=== PATIENT | male | born 1980 | race Caucasian/White ===

== ENCOUNTER 2018-08-07 17:52 | Emergency (ER) | payer SELFPAY ==
[~2018-08-07] VITALS: Ht 175.3 cm; Wt 79.4 kg
[2018-08-07 19:00] VITALS: BP 131/80
[2018-08-07] MEDS ORDERED: IBUPROFEN 400 MG TABLET. PO ONE (19:45)
[2018-08-07] MEDS ORDERED: IPRATRPIUM/ALBUTEROL 0.5/2.5MG 3 ML NEBU. NEB ONE (19:45)
[2018-08-07 20:10] LABS: INFLUENZA A PATIENT POSITIVE (NEGATIVE); INFLUENZA B PATIENT NEGATIVE (NEGATIVE)
--- NOTE | 2018-08-07 20:13 | PHYS DOC ---
Past Medical History Past Medical History: No Pertinent History (MCKAYLA FAY APRN) Past Surgical History: Appendectomy (MCKAYLA FAY APRN) Alcohol Use: Occasionally Drug Use: None (MCKAYLA FAY APRN) Adult General Chief Complaint Chief Complaint: COUGH HPI HPI Patient is a 38 year old male who presents with flulike symptoms 3 days. The patient states that he has had a mild cough with a fever, body aches and general malaise. He states that his highest fever was 103F. He has been using Tylenol and Motrin to treat his symptoms. He also has some [id number] flu relief medicine that he has been taking. He denies shortness of breath or chest pain. (MCKAYLA FAY APRN) Review of Systems Review of Systems Constitutional: See history of present illness Eyes: Denies change in visual acuity, redness, or eye pain [] HENT: Denies nasal congestion or sore throat [] Respiratory: See history of present illness Cardiovascular: No additional information not addressed in HPI [] GI: Denies abdominal pain, nausea, vomiting, bloody stools or diarrhea [] : Denies dysuria or hematuria [] Musculoskeletal: See history of present illness Integument: Denies rash or skin lesions [] Neurologic: Denies headache, focal weakness or sensory changes [] Endocrine: Denies polyuria or polydipsia [] All other systems were reviewed and found to be within normal limits, except as documented in this note. (MCKAYLA FAY APRN) Current Medications Current Medications Current Medications Medications (Trade) Dose Ordered Sig/Angella Start Time Stop Time Status Last Admin Dose Admin Albuterol/ Ipratropium (Duoneb) 3 ml 1X ONCE 08/07/18 19:45 08/07/18 19:49 DC 08/07/18 19:53 3 ML Ibuprofen (Motrin) 400 mg 1X ONCE 08/07/18 19:45 08/07/18 19:49 DC 08/07/18 19:58 400 MG (DOUGLAS NG MD) Allergies Allergies Allergies Coded Allergies Type Severity Reaction Last Updated Verified No Known Drug Allergies 08/07/18 No (DOUGLAS NG MD) Physical Exam Physical Exam Constitutional: Well developed, well nourished, no acute distress, non-toxic appearance. [] HENT: Normocephalic, atraumatic, bilateral tympanic membranes normal, oropharynx moist, no oral exudates, nose normal. [] Eyes: PERRLA, EOMI, conjunctiva normal, no discharge. [] Neck: Normal range of motion, no tenderness, supple, no stridor. [] Cardiovascular:Heart rate regular rhythm, no murmur [] Lungs & Thorax: Bilateral breath sounds clear to auscultation, cough noted [] Abdomen: Bowel sounds normal, soft, no tenderness, no masses, no pulsatile masses. [] Skin: Warm, dry, no erythema, no rash. [] Back: No tenderness, no CVA tenderness. [] Extremities: No tenderness, no cyanosis, no clubbing, ROM intact, no edema. [] Neurologic: Alert and oriented X 3, normal motor function, normal sensory function, no focal deficits noted. [] Psychologic: Affect normal, judgement normal, mood normal. [] (MCKAYLA FAY APRN) Current Patient Data Vital Signs Vital Signs Date Time Temp Pulse Resp B/P (MAP) Pulse Ox O2 Delivery O2 Flow Rate FiO2 08/07/18 19:55 96 Room Air 08/07/18 19:00 100.6 96 18 131/80 (97) 100.6 (DOUGLAS NG MD) Lab Values Laboratory Tests Test 08/07/18 19:03 Influenza Type A Antigen Positive (NEGATIVE) Influenza Type B Antigen Negative (NEGATIVE) (DOUGLAS NG MD) EKG EKG [] (MCKAYLA FAY APRN) Radiology/Procedures Radiology/Procedures [] (MCKAYLA FYA APRN) Course & Med Decision Making Course & Med Decision Making Pertinent Labs and Imaging studies reviewed. (See chart for details) []He patient is positive for type A influenza. The patient declines Tamiflu given the number of days that he is already been ill. (MCKAYLA FAY APRN) Course & Med Decision Making Staff Physician Addendum: I was working in the ER during the course of this patient's visit. I was available for consultation as needed, but I was not directly involved in the care of this patient. (DOUGLAS NG MD) Dragon Disclaimer Dragon Disclaimer This electronic medical record was generated, in whole or in part, using a voice recognition dictation system. (MCKAYLA FAY APRN) Departure Departure Impression: Primary Impression: Influenza A Disposition: 01 HOME, SELF-CARE Condition: STABLE Referrals: NO PCP (PCP) Patient Instructions: Influenza A (H1N1) Additional Instructions: Increase fluids and rest. He may take ibuprofen and Tylenol for fever. Follow- up with your primary care provider in 4 days if not improving or return to the emergency department if worsening. MCKAYLA FAY APRN Aug 07, 2018 20:13 DOUGLAS NG MD Aug 18, 2018 00:06
== END 2018-08-07 20:15 | disposition home or self-care (01) ==
LOC: ER 17:52
DX: J10.1 Influenza due to other identified influenza virus with other respiratory manifestations (principal); R50.9 Fever, unspecified; R53.81 Other malaise
CPT/HCPCS: 87804; 94640; 99283; J7620

== ENCOUNTER 2019-04-23 18:45 | Emergency (ER) | payer SELFPAY ==
[~2019-04-23] VITALS: Ht 172.7 cm; Wt 72.6 kg
[2019-04-23 19:18] VITALS: BP 151/87
[2019-04-23] MEDS ORDERED: KETOROLAC 60 MG/2 ML VIAL. IM ONE (19:30)
--- NOTE | 2019-04-23 20:09 | RAD ---
Exam: Chest one view INDICATION: Fever TECHNIQUE: Frontal view of the chest Comparisons: None FINDINGS: The cardiomediastinal silhouette and pulmonary vessels are within normal limits. The lung and pleural spaces are clear. IMPRESSION: No acute cardiopulmonary process. Electronically signed by: Nba Awad MD (04/23/2019 8:06 PM) [facility]
[2019-04-23 20:44] LABS: INFLUENZA A PATIENT NEGATIVE (NEGATIVE); INFLUENZA B PATIENT NEGATIVE (NEGATIVE)
[2019-04-23] MEDS ORDERED: BENZ100C PO (21:02)
[2019-04-23] MEDS ORDERED: ALBU2.5V8 IH (21:02)
--- NOTE | 2019-04-23 22:12 | PHYS DOC ---
Past Medical History Past Medical History: No Pertinent History Past Surgical History: Appendectomy Alcohol Use: Occasionally Drug Use: None Adult General Chief Complaint Chief Complaint: FEVER HPI HPI Patient is a 38 year old male presenting with fever subjective body aches cough occasional mucus is sick with similar symptoms he says he wasn't he is worried about the flu because he had that last year positive nausea symptoms are moderate slowly worsening with time Review of Systems Review of Systems Constitutional: Denies fever or chills [] Eyes: Denies change in visual acuity, redness, or eye pain [] HENT: Denies sore throat [] Neurologic: Denies headache, focal weakness or sensory changes [] Endocrine: Denies polyuria or polydipsia [] All other systems were reviewed and found to be within normal limits, except as documented in this note. Current Medications Current Medications Current Medications Medications (Trade) Dose Ordered Sig/Angella Start Time Stop Time Status Last Admin Dose Admin Ketorolac Tromethamine (Toradol Im) 30 mg 1X ONCE 04/23/19 19:30 04/23/19 19:32 DC 04/23/19 20:13 30 MG Allergies Allergies Allergies Coded Allergies Type Severity Reaction Last Updated Verified No Known Drug Allergies 08/07/18 No Physical Exam Physical Exam Constitutional: Well developed, well nourished, no acute distress, non-toxic appearance. [] HENT: Normocephalic, atraumatic, bilateral external ears normal, oropharynx moist, no oral exudates, nose normal. [] Eyes: PERRLA, EOMI, conjunctiva normal, no discharge. [] Neck: Normal range of motion, no tenderness, supple, no stridor. [] Cardiovascular:Heart rate regular rhythm, no murmur [] Lungs & Thorax: Bilateral breath sounds clear to auscultation []reactive cough Abdomen: Bowel sounds normal, soft, no tenderness, no masses, no pulsatile masses. [] Skin: Warm, dry, no erythema, no rash. [] Back: No tenderness, no CVA tenderness. [] Extremities: No tenderness, no cyanosis, no clubbing, ROM intact, no edema. [] Neurologic: Alert and oriented X 3, normal motor function, normal sensory function, no focal deficits noted. [] Psychologic: Affect normal, judgement normal, mood normal. [] Current Patient Data Vital Signs Vital Signs Date Time Temp Pulse Resp B/P (MAP) Pulse Ox O2 Delivery O2 Flow Rate FiO2 04/23/19 19:18 98.1 105 20 151/87 (108) 97 Room Air 98.1 Lab Values Laboratory Tests Test 04/23/19 20:18 Influenza Type A Antigen Negative (NEGATIVE) Influenza Type B Antigen Negative (NEGATIVE) EKG EKG [] Radiology/Procedures Radiology/Procedures [] Impressions: FINDINGS: The cardiomediastinal silhouette and pulmonary vessels are within normal limits. The lung and pleural spaces are clear. IMPRESSION: No acute cardiopulmonary process. Electronically signed by: Miguel Jo MD (04/23/2019 8:06 PM) [facility] DICTATED and SIGNED BY: MIGUEL JO MD DATE: 04/23/192005 Course & Med Decision Making Course & Med Decision Making Pertinent Labs and Imaging studies reviewed. (See chart for details) []cxr and flu swab negative. bronchitis. symptomatic treatment provided. Dragon Disclaimer Dragon Disclaimer This electronic medical record was generated, in whole or in part, using a voice recognition dictation system. Departure Departure Impression: Primary Impression: Bronchitis Disposition: HOME, SELF-CARE Condition: STABLE Patient Instructions: Bronchitis, [id number] Scripts Benzonatate (TESSALON PERLE) 100 Mg Capsule 1 CAP PO TID, #21 CAP Prov: DOUGLAS NG MD 04/23/19 Albuterol Sulfate (PROAIR HFA INHALER) 8.5 Gm Hfa.aer.ad 2 PUFF IH PRN Q4-6HRS PRN for wheezing for 21 Days, #1 INHALER 0 Refills Prov: DOUGLAS NG MD 04/23/19 DOUGLAS NG MD Apr 23, 2019 22:12
== END 2019-04-23 21:12 | disposition home or self-care (01) ==
LOC: ER 18:45
DX: J40 Bronchitis, not specified as acute or chronic (principal); R05 Cough; Z90.49 Acquired absence of other specified parts of digestive tract
CPT/HCPCS: 71045; 87804; 96372; 99285; J1885